=== PATIENT | female | born 2000 | race Two or more races ===

== ENCOUNTER 2021-11-05 15:25 | Emergency (ER) | payer OTHER ==
[~2021-11-05] VITALS: Ht 157.5 cm; Wt 76.0 kg
[2021-11-05] MEDS ORDERED: LIDOCAINE HCL 1% 20ML VIAL (Pyxis) INJ INFIL ONE (17:30)
[2021-11-05] MEDS ORDERED: HYDROCODONE/ACETAMINOPHEN 5/325MG TABLET PO ONE (17:30)
[2021-11-05] MEDS ORDERED: LIDOCAINE HCL/PF 1% 10 MG/ML 5ML VIAL INFIL ONE (17:30)
[2021-11-05 18:13] VITALS: BP 106/67
[2021-11-05] MEDS ORDERED: CEPH500C2 MT ×3 (19:55→20:15)
[2021-11-05] MEDS ORDERED: IBUP-2029 MT ×3 (19:56→20:15)
== END 2021-11-05 20:32 | disposition home or self-care (01) ==
LOC: ER 15:25
DX: L02.415 Cutaneous abscess of right lower limb (principal); G40.909 Epilepsy, unspecified, not intractable, without status epilepticus; J45.909 Unspecified asthma, uncomplicated; Z98.890 Other specified postprocedural states; Z86.14 Personal history of Methicillin resistant Staphylococcus aureus infection; Z91.018 Allergy to other foods
CPT/HCPCS: 10060; 99283; J3490

== ENCOUNTER 2021-11-08 16:26 | Emergency (ER) | payer OTHER ==
[~2021-11-08] VITALS: Ht 157.5 cm; Wt 68.0 kg
[~2021-11-08 16:26] MED LIST: CEPH500C2 MT; IBUP-2029 MT
[2021-11-08] MEDS ORDERED: DOXY100C5 MT (18:28)
[2021-11-08 18:37] VITALS: BP 125/74
[2021-11-08] MEDS ORDERED: ACETAMINOPHEN 500MG TABLET PO ONE (18:45)
== END 2021-11-08 18:39 | disposition home or self-care (01) ==
LOC: ER 16:26
DX: Z48.00 Encounter for change or removal of nonsurgical wound dressing (principal); L02.415 Cutaneous abscess of right lower limb; Z98.890 Other specified postprocedural states; Z86.59 Personal history of other mental and behavioral disorders; J45.909 Unspecified asthma, uncomplicated
CPT/HCPCS: 99282

== ENCOUNTER 2021-12-09 16:54 | Emergency (ER) | payer OTHER ==
[~2021-12-09] VITALS: Ht 154.9 cm; Wt 79.0 kg
[~2021-12-09 16:54] MED LIST changes: +DOXY100C5 MT
[2021-12-09 18:21] LABS: BASOPHILS % 1.5 % (0.0-2.0); EOSINOPHILS % 2.7 % (0.0-5.0); HEMOGLOBIN. 10.6 g/dL (12.0-16.0); LYMPHOCYTES % 44.3 % (20.0-50.0); MEAN CORPUSCULAR HEMOGLOBIN 20.5 pg (28.0-32.0); MEAN CORPUSCULAR VOLUME 65.7 fL (81.0-99.0); MEAN PLATELET VOLUME 8.9 fl (7.4-10.4); MONOCYTES % 6.9 % (2.0-8.0); NEUTROPHILS % 44.6 % (40.0-76.0); PLATELET 359 x1000/uL (130-400); RED BLOOD CELL COUNT 5.18 mill/uL (4.2-5.4)
[2021-12-09 18:37] LABS: PLATELET ESTIMATE NORMAL
[2021-12-09 19:36] LABS: HCG SCREEN NEGATIVE
[2021-12-09] MEDS ORDERED: FERR325T6 MT (19:59)
[2021-12-09 20:02] VITALS: BP 115/64
== END 2021-12-09 20:02 | disposition home or self-care (01) ==
LOC: ER 16:54
DX: N93.9 Abnormal uterine and vaginal bleeding, unspecified (principal); J45.909 Unspecified asthma, uncomplicated; Z98.890 Other specified postprocedural states; Z86.59 Personal history of other mental and behavioral disorders
CPT/HCPCS: 36415; 84703; 85025; 99283

== ENCOUNTER 2022-06-27 13:25 | Emergency (ER) | payer MEDICAID, OTHER ==
[~2022-06-27] VITALS: Ht 167.6 cm; Wt 91.0 kg
[~2022-06-27 13:25] MED LIST changes: +FERR325T6 MT
[2022-06-27] MEDS ORDERED: KETOROLAC 60MG/2ML VIAL IM NR (14:43)
[2022-06-27] MEDS ORDERED: ONDANSETRON HCL 4MG/2ML INJ IM NR (14:43)
[2022-06-27 15:11] LABS: HEMATOCRIT. 29.6 % (36.0-48.0); HEMOGLOBIN. 9.2 g/dL (12.0-16.0); MEAN CORPUSCULAR HEMOGLOBIN 18.1 pg (28.0-32.0); MEAN CORPUSCULAR VOLUME 58.3 fL (81.0-99.0); MEAN PLATELET VOLUME 9.3 fl (7.4-10.4); PLATELET 249 x1000/uL (130-400); RED BLOOD CELL COUNT 5.07 mill/uL (4.2-5.4); RED CELL DISTRIBUTION WIDTH 18.7 % (11.6-14.6)
[2022-06-27 15:15] LABS: CHLORIDE 99 mEq/L (98-107)
[2022-06-27] MEDS ORDERED: IBUPROFEN 600MG TABLET PO STA (17:22)
[2022-06-27] MEDS ORDERED: ONDANSETRON 4MG ODT PO STA (17:22)
[2022-06-27 17:32] LABS: CLARITY URINE CLEAR (CLEAR); COLOR URINE YELLOW (YELLOW); KETONES URINE NEGATIVE (NEGATIVE); LEUKOCYTE ESTERASE URINE TRACE (NEGATIVE); NITRITE URINE NEGATIVE (NEGATIVE); OCCULT BLOOD URINE NEGATIVE (NEGATIVE); PH URINE 6.5 (4.5-8.0); PROTEIN URINE NEGATIVE (NEGATIVE); SPECIFIC GRAVITY URINE 1.014 (1.005-1.030); UROBILINOGEN URINE 0.2 E.U./dL (0.2-1.0)
[2022-06-27] MEDS ORDERED: FERR325T6 PO (18:05)
[2022-06-27] MEDS ORDERED: D-ME473S50 PO (18:05)
[2022-06-27] MEDS ORDERED: NAPR-681 PO (18:05)
[2022-06-27 18:42] VITALS: BP 136/73
[2022-06-27 19:20] LABS: PLATELET ESTIMATE NORMAL
== END 2022-06-27 18:43 | disposition home or self-care (01) ==
LOC: ER 13:25
DX: J06.9 Acute upper respiratory infection, unspecified (principal); D64.9 Anemia, unspecified; Z20.822 Contact with and (suspected) exposure to COVID-19; Z98.890 Other specified postprocedural states; Z86.59 Personal history of other mental and behavioral disorders
CPT/HCPCS: 36415; 71045; 80053; 81003; 81025; 83690; 85025; 87426; 96372; 99284; C9803; J1885; J2405; Q0162

== ENCOUNTER 2022-10-30 20:30 | Emergency (ER) | payer MEDICAID, OTHER ==
[~2022-10-30] VITALS: Ht 157.5 cm; Wt 70.9 kg
[~2022-10-30 20:30] MED LIST changes: +D-ME473S50 PO; +FERR325T6 PO; +NAPR-681 PO
[2022-10-30 21:12] VITALS: BP 125/78
[2022-10-31 04:46] LABS: EOSINOPHILS % 3.1 % (0.0-5.0); HEMATOCRIT. 32.2 % (36.0-48.0); HEMOGLOBIN. 9.9 g/dL (12.0-16.0); MEAN CORPUSCULAR HEMOGLOBIN 17.5 pg (28.0-32.0); MEAN CORPUSCULAR VOLUME 57.3 fL (81.0-99.0); MEAN PLATELET VOLUME 9.1 fl (7.4-10.4); MONOCYTES % 8.7 % (2.0-8.0); NEUTROPHILS % 45.2 % (40.0-76.0); PLATELET 583 x1000/uL (130-400); RED BLOOD CELL COUNT 5.63 mill/uL (4.2-5.4); RED CELL DISTRIBUTION WIDTH 20.6 % (11.6-14.6)
[2022-10-31 04:55] LABS: CHLORIDE 104 mEq/L (98-107)
[2022-10-31 05:45] LABS: PLATELET ESTIMATE INCREASED
== END 2022-10-31 07:01 | disposition home or self-care (01) ==
LOC: ER 20:30
DX: D64.9 Anemia, unspecified (principal); R53.1 Weakness; D57.1 Sickle-cell disease without crisis; J45.909 Unspecified asthma, uncomplicated; Z98.890 Other specified postprocedural states; Z79.899 Other long term (current) drug therapy; Z20.822 Contact with and (suspected) exposure to COVID-19
CPT/HCPCS: 36415; 71045; 80048; 85025; 87426; 87804; 99284; C9803

== ENCOUNTER 2023-02-14 19:21 | Emergency (ER) | payer MEDICAID, OTHER ==
[~2023-02-14] VITALS: Ht 160 cm; Wt 82.0 kg
[2023-02-14 19:45] VITALS: TEMP 99.2; O2SAT 100
[2023-02-14] MEDS ORDERED: KETOROLAC 30MG/ML VIAL IM ONE (22:30)
[2023-02-14] MEDS ORDERED: DIPHENHYDRAMINE 25MG CAPSULE PO ONE (22:30)
[2023-02-14] MEDS ORDERED: METOCLOPRAMIDE HCL 10MG/2ML VIAL IM ONE (22:30)
[2023-02-14 23:16] VITALS: BP 113/74; PULSE 93; RESP 16
[2023-02-15] MEDS ORDERED: ASPI1TAB8 PO (00:06)
[2023-02-15] MEDS ORDERED: HYDROCODONE/ACETAMINOPHEN 5/325MG TABLET PO ONE (00:45)
[2023-02-15 00:58] LABS: EOSINOPHILS % 3.2 % (0.0-5.0); HEMATOCRIT. 25.4 % (36.0-48.0); HEMOGLOBIN. 7.8 g/dL (12.0-16.0); LYMPHOCYTES % 40.2 % (20.0-50.0); MEAN CORPUSCULAR HEMOGLOBIN 17.6 pg (28.0-32.0); MEAN CORPUSCULAR VOLUME 57.6 fL (81.0-99.0); MEAN PLATELET VOLUME 8.6 fl (7.4-10.4); MONOCYTES % 8.3 % (2.0-8.0); NEUTROPHILS % 47.3 % (40.0-76.0); PLATELET 321 x1000/uL (130-400); RED BLOOD CELL COUNT 4.41 mill/uL (4.2-5.4); RED CELL DISTRIBUTION WIDTH 20.1 % (11.6-14.6)
[2023-02-15] MEDS ORDERED: FERR325T6 MT (01:20)
[2023-02-15 01:54] LABS: PLATELET ESTIMATE NORMAL
[2023-02-15 01:57] LABS: CHLORIDE 110 mEq/L (98-107)
== END 2023-02-15 06:33 | disposition home or self-care (01) ==
LOC: ER 19:54
DX: R51.9 Headache, unspecified (principal); D64.9 Anemia, unspecified; J45.909 Unspecified asthma, uncomplicated; Z98.890 Other specified postprocedural states
CPT/HCPCS: 99284; 96372; 80048; 85025; 36415; Q0163; J1885; J2765

== ENCOUNTER 2023-04-02 16:09 | Emergency (ER) | payer MEDICAID, OTHER ==
[~2023-04-02] VITALS: Ht 160 cm; Wt 68.0 kg
[~2023-04-02 16:09] MED LIST changes: +ASPI1TAB8 PO
[2023-04-02 16:16] VITALS: BP 134/80; PULSE 92; RESP 16; TEMP 98.2; O2SAT 98
== END 2023-04-02 17:41 | disposition home or self-care (01) ==
LOC: ER 16:09
DX: T16.2XXA Foreign body in left ear, initial encounter (principal); T16.1XXA Foreign body in right ear, initial encounter; J45.909 Unspecified asthma, uncomplicated; Z98.890 Other specified postprocedural states; Z79.899 Other long term (current) drug therapy; X58.XXXA Exposure to other specified factors, initial encounter; Y93.89 Activity, other specified; Y92.89 Other specified places as the place of occurrence of the external cause; Y99.8 Other external cause status
CPT/HCPCS: 69200; 99284

== ENCOUNTER 2023-05-21 21:20 | Emergency (ER) | payer MEDICAID, OTHER ==
[~2023-05-21] VITALS: Ht 157.5 cm; Wt 82.0 kg
[2023-05-21 21:45] VITALS: O2SAT 98
[2023-05-21 22:31] LABS: BASOPHILS % 0.8 % (0.0-2.0); DIFFERENTIAL COMMENT 1; EOSINOPHILS % 3.6 % (0.0-5.0); HEMATOCRIT. 26.6 % (36.0-48.0); HEMOGLOBIN. 8.3 g/dL (12.0-16.0); LYMPHOCYTES % 32.5 % (20.0-50.0); MEAN CORPUSCULAR HEMOGLOBIN 17.6 pg (28.0-32.0); MEAN CORPUSCULAR HGB CONC 31.1 g/dL (31.0-37.0); MEAN CORPUSCULAR VOLUME 56.5 fL (81.0-99.0); MEAN PLATELET VOLUME 9.4 fl (7.4-10.4); MONOCYTES % 8.6 % (2.0-8.0); NEUTROPHILS % 54.5 % (40.0-76.0); PLATELET 294 x1000/uL (130-400); RED BLOOD CELL COUNT 4.71 mill/uL (4.2-5.4); RED CELL DISTRIBUTION WIDTH 20.8 % (11.6-14.6); WHITE BLOOD COUNT 7.6 x1000/uL (4.5-11.0)
[2023-05-21 22:32] LABS: ADD RBC MORPHOLOGY YES
[2023-05-21 22:46] LABS: ANISOCYTOSIS 2+; CHLORIDE 106 mEq/L (98-107); HYPOCHROMASIA 3+; INDEX HEMOLYSI 1 (1-3); INDEX ICTERIC 1 (1-4); INDEX LIPEMIC 1 (1-3); MICROCYTOSIS 3+; PLATELET ESTIMATE NORMAL; POTASSIUM 3.4 mEq/L (3.5-5.1); SODIUM 136 mEq/L (136-145)
[2023-05-21 22:48] LABS: CALCIUM 8.5 mg/dL (8.5-10.1)
[2023-05-21] MEDS ORDERED: SODIUM CHLORIDE 0.9% 1,000 ML IV ONE (23:00)
[2023-05-21 23:11] LABS: ALANINE AMINOTRANSFERASE 13 IU/L (13-61); ALBUMIN 3.4 g/dL (3.4-5.0); ASPARTATE AMINOTRANSFERASE 12 IU/L (15-37); B-HCG QUANTITATIVE 126350 mIU/mL (<3); BILIRUBIN TOTAL 0.2 mg/dL (0.1-1.0); CARBON DIOXIDE 22 mEq/L (21-32); CREATININE 0.5 mg/dL (0.6-1.3); GLUCOSE 88 mg/dL (70-105); PROTEIN TOTAL 7.3 g/dL (6.0-8.3); UREA NITROGEN BLOOD 4 mg/dL (7-21)
[2023-05-22 01:30] VITALS: BP 117/81; PULSE 86; RESP 20; TEMP 98.7
== END 2023-05-22 02:43 | disposition home or self-care (01) ==
LOC: ER 21:20
DX: O46.91 Antepartum hemorrhage, unspecified, first trimester (principal); D64.9 Anemia, unspecified; J45.909 Unspecified asthma, uncomplicated; Z79.899 Other long term (current) drug therapy; Z3A.08 8 weeks gestation of pregnancy
CPT/HCPCS: 80053; 84702; 85025; 86850; 86900; 86901; 36415; 76801; 96360; 99284; J7030; Z7610 ×4

== ENCOUNTER 2023-10-07 13:44 | Emergency (ER) | payer MEDICAID ==
[~2023-10-07] VITALS: Ht 160 cm; Wt 88.3 kg
[2023-10-07 13:56] VITALS: O2SAT 99
[2023-10-07] MEDS: METOCLOPRAMIDE HCL 10MG/2ML VIAL IV ONE (14:15)
[2023-10-07] MEDS: SODIUM CHLORIDE 0.9% 1,000 ML IV ONE (14:15)
[2023-10-07 16:01] LABS: EOSINOPHILS % 2.4 % (0.0-5.0); HEMATOCRIT. 23.8 % (36.0-48.0); HEMOGLOBIN. 7.2 g/dL (12.0-16.0); LYMPHOCYTES % 24.1 % (20.0-50.0); MEAN CORPUSCULAR HEMOGLOBIN 17.1 pg (28.0-32.0); MEAN CORPUSCULAR HGB CONC 30.4 g/dL (31.0-37.0); MEAN CORPUSCULAR VOLUME 56.2 fL (81.0-99.0); MEAN PLATELET VOLUME 8.8 fl (7.4-10.4); MONOCYTES % 8.4 % (2.0-8.0); NEUTROPHILS % 64.1 % (40.0-76.0); PLATELET 278 x1000/uL (130-400); RED BLOOD CELL COUNT 4.23 mill/uL (4.2-5.4); RED CELL DISTRIBUTION WIDTH 20.6 % (11.6-14.6); WHITE BLOOD COUNT 7.8 x1000/uL (4.5-11.0)
[2023-10-07 16:05] LABS: DIFFERENTIAL COMMENT 1
[2023-10-07 16:06] LABS: ADD RBC MORPHOLOGY YES
[2023-10-07 16:19] LABS: ALANINE AMINOTRANSFERASE < 7 IU/L (10-49); ASPARTATE AMINOTRANSFERASE 17 IU/L (<34); B-HCG QUANTITATIVE 7935 mIU/mL (<3); BILIRUBIN TOTAL 0.4 mg/dL (0.1-1.0); CALCIUM 8.9 mg/dL (8.7-10.4); CARBON DIOXIDE 21 mEq/L (21-32); CHLORIDE 106 mEq/L (98-107); CREATININE 0.5 mg/dL (0.6-1.0); GLUCOSE 88 mg/dL (70-105); POTASSIUM 3.9 mEq/L (3.5-5.1); PROTEIN TOTAL 7.1 g/dL (6.0-8.3); SODIUM 138 mEq/L (136-145)
[2023-10-07 16:21] LABS: UREA NITROGEN BLOOD < 5 mg/dL (9-23)
[2023-10-07 17:02] LABS: ANISOCYTOSIS 2+; MICROCYTOSIS 3+; OVALOCYTES 1+; PLATELET ESTIMATE NORMAL
[2023-10-07 17:03] LABS: HYPOCHROMASIA 1+
[2023-10-07 17:23] LABS: CLARITY URINE CLEAR (CLEAR); COLOR URINE YELLOW (YELLOW); GLUCOSE URINE NEGATIVE (NEGATIVE); KETONES URINE NEGATIVE (NEGATIVE); LEUKOCYTE ESTERASE URINE 3+ (NEGATIVE); NITRITE URINE NEGATIVE (NEGATIVE); OCCULT BLOOD URINE NEGATIVE (NEGATIVE); PH URINE 6.5 (4.5-8.0); PROTEIN URINE NEGATIVE (NEGATIVE); SPECIFIC GRAVITY URINE 1.012 (1.005-1.030)
[2023-10-07 18:04] LABS: BACTERIA URINE TRACE; RBC URINE NONE SEEN /hpf (0-2); SQUAMOUS EPITHELIAL CELL URINE FEW /lpf (RARE/1+)
[2023-10-07] MEDS ORDERED: TOPUD MT (18:19)
[2023-10-07] MEDS ORDERED: CEPH500C2 MT (18:19)
[2023-10-07] MEDS ORDERED: FERR325T6 MT (18:19)
[2023-10-07] MEDS: CEFTRIAXONE 1GM PREMIX 50 ML IV ONE (18:44)
[2023-10-07 18:58] VITALS: BP 106/63; PULSE 79; RESP 16; TEMP 97.4
== END 2023-10-07 19:00 | disposition home or self-care (01) ==
LOC: ER 13:44
DX: O26.892 Other specified pregnancy related conditions, second trimester (principal); O23.32 Infections of other parts of urinary tract in pregnancy, second trimester; R51.9 Headache, unspecified; R42 Dizziness and giddiness; D64.9 Anemia, unspecified; J45.909 Unspecified asthma, uncomplicated; Z79.899 Other long term (current) drug therapy; Z3A.28 28 weeks gestation of pregnancy
CPT/HCPCS: 80053; 81003; 84702; 83690; 85025; 36415; 76805; 70551; 93005; 96365; 96361; 96375; 99285; J0696; J2765; J7030; Z7610 ×2